=== PATIENT | female | born 1965 | race Hispanic/Latino ===

== ENCOUNTER 2019-02-20 06:56 | Day surgery (SDC) | payer OTHER ==
[2019-02-19 13:03] VITALS: BMI 35.9
--- NOTE | 2019-02-20 07:29 | HP ---
HISTORY OF PRESENT ILLNESS: This is a 53-year-old female comes for a colonoscopy for colon cancer screening. The patient has no specific GI symptoms. There is no family history of colon cancer. ALLERGIES: NONE. SOCIAL HISTORY: The patient does not smoke or drink alcohol. MEDICAL ILLNESSES: 1. Hypothyroidism. 2. Constipation. 3. Allergic rhinitis. 4. Polyarthralgia. 5. Past history of Guillain-Dannebrog syndrome. 6. Tubal ligation. 7. Cholecystectomy. PHYSICAL EXAMINATION: VITAL SIGNS: Pulse is 70 and blood pressure 130/70. HEENT: Conjunctivae clear. CARDIOVASCULAR: First and second heart sounds normal. LUNGS: Clear to auscultation. ABDOMEN: Soft. No organomegaly. No tenderness. No masses. EXTREMITIES: Reveal no edema. ADMITTING DIAGNOSIS: A 53-year-old female comes with a colonoscopy for colon cancer screening. Job ID: [id number]
[2019-02-20] MEDS ORDERED: PROPOFOL 200 MG/20 ML VIAL ONE (11:09)
--- NOTE | 2019-02-20 14:45 | OP ---
DATE OF PROCEDURE: 02/20/2019 PROCEDURE PERFORMED: Colonoscopy with polypectomy. PREOPERATIVE DIAGNOSIS: A 53-year-old female undergoing colonoscopy for colon cancer screening. POSTOPERATIVE DIAGNOSES: 1. Mild sigmoid diverticular disease. 2. Sessile polyp, sigmoid colon, status post snare cautery with good hemostasis. 3. Hemorrhoids and fibroepithelial polyp. DESCRIPTION OF PROCEDURE: The patient was placed on her left lateral position and was given sedation by Anesthesia Department. A rectal exam was done before the scope was advanced into the rectum. No lesion felt on rectal exam. A Pentax video colonoscope was introduced into the rectum and advanced all the way to the cecum. The prep was good. She did have some pockets of retained fecal residue. The appendicular opening, ileocecal wall, cecum, no pathology seen. Withdrawal of scope in the cecum, the ascending colon, hepatic flexure, no pathology seen. The transverse colon, splenic flexure, no lesion seen. In the descending colon, no pathology. The high sigmoid colon showed a broad-based sessile polyp. This was removed with snare cautery with good hemostasis. The patient had mild sigmoid diverticular disease. Retroflexion of the scope in the rectum showed hemorrhoids and what appeared to be a fibroepithelial polyp. This was not removed. Colon decompressed. DISCHARGE PLANNING: This is a 53-year-old female came for colonoscopy for colon cancer screening. She underwent colonoscopy and polypectomy. DISCHARGE RECOMMENDATION: 1. The patient advised to call me if she develops abdominal pain or hematochezia. 2. In the absence of any of above symptoms, she will come back to me in 2 weeks. Job ID: [id number]
== END 2019-02-20 10:45 | disposition home or self-care (01) ==
LOC: SDC 06:56
PROVIDERS: ATTEND Internal Medicine Gastroenterology
PROC: 0DBE8ZZ Excision of Large Intestine, Via Natural or Artificial Opening Endoscopic (ICD-10-PCS; principal; 2019-02-20)
DX: Z12.11 Encounter for screening for malignant neoplasm of colon (principal); D12.5 Benign neoplasm of sigmoid colon; K57.30 Diverticulosis of large intestine without perforation or abscess without bleeding; K64.9 Unspecified hemorrhoids; E03.9 Hypothyroidism, unspecified; K59.00 Constipation, unspecified
CPT/HCPCS: 88305; J2704

== ENCOUNTER 2019-04-03 08:03 | Outpatient (CLI) | payer OTHER ==
--- NOTE | 2019-04-03 10:31 | MMO ---
Bilateral MAMMO Bilat Screen [facility]. CLINICAL HISTORY: Patient is 53 years old and is seen for screening. The patient has no family history of breast cancer. The patient has no personal history of cancer. VIEWS: The views performed were: bilateral craniocaudal with tomosynthesis and bilateral mediolateral oblique with tomosynthesis. FILMS COMPARED: The present examination has been compared to prior imaging studies performed at [facility] on 11/05/2010, 11/24/2011, 10/24/2014 and 10/27/2015. MAMMOGRAM FINDINGS: The breasts are heterogeneously dense, which could obscure a lesion on mammography. There are no suspicious masses, suspicious calcifications, or new areas of architectural distortion. IMPRESSION: THERE IS NO MAMMOGRAPHIC EVIDENCE OF MALIGNANCY. A ROUTINE FOLLOW-UP MAMMOGRAM IN 1 YEAR IS RECOMMENDED. THE RESULTS OF THIS EXAM WERE SENT TO THE PATIENT. ACR BI-RADS Category 1 - Negative MAMMOGRAPHY NOTE: 1. A negative mammogram report should not delay a biopsy if a dominant of clinically suspicious mass is present. 2. Approximately 10% to 15% of breast cancers are not detected by mammography. 3. Adenosis and dense breasts may obscure an underlying neoplasm.
== END 2019-04-03 08:04 | disposition home or self-care (01) ==
LOC: BICMAMMO 08:03
PROVIDERS: ATTEND Physician Assistant
DX: Z12.31 Encounter for screening mammogram for malignant neoplasm of breast (principal)
CPT/HCPCS: 77063; 77067

== ENCOUNTER 2021-06-12 08:17 | Outpatient (CLI) | payer OTHER | END 2021-06-12 08:18 | disposition home or self-care (01) | LOC: BICMAMMO 08:17 | PROVIDERS: ATTEND Physician Assistant | DX: Z12.31 Encounter for screening mammogram for malignant neoplasm of breast (principal) | CPT/HCPCS: 77063; 77067 ==

== ENCOUNTER 2022-01-21 09:11 | Outpatient (CLI) | payer OTHER | END 2022-01-21 09:12 | disposition home or self-care (01) | LOC: MRI 09:11 | PROVIDERS: ATTEND Neurological Surgery | DX: M47.22 Other spondylosis with radiculopathy, cervical region (principal) | CPT/HCPCS: 72050; 72141 ==

== ENCOUNTER 2022-03-23 10:33 | Outpatient (CLI) | payer OTHER | END 2022-03-23 10:34 | disposition home or self-care (01) | LOC: TBSIIMAG 10:33 | PROVIDERS: ATTEND Neurological Surgery | DX: G54.0 Brachial plexus disorders (principal) ==

== ENCOUNTER 2023-06-20 09:12 | Outpatient (CLI) | payer OTHER | END 2023-06-20 09:13 | disposition home or self-care (01) | LOC: BICMAMMO 09:12 | PROVIDERS: ATTEND Physician Assistant | DX: Z12.31 Encounter for screening mammogram for malignant neoplasm of breast (principal) | CPT/HCPCS: 77063; 77067 ==

== ENCOUNTER 2024-07-23 08:46 | Outpatient (CLI) | payer OTHER | END 2024-07-23 08:47 | disposition home or self-care (01) | LOC: BICMAMMO 08:46 | PROVIDERS: ATTEND Nurse Practitioner Family | DX: Z12.31 Encounter for screening mammogram for malignant neoplasm of breast (principal) | CPT/HCPCS: 77063; 77067 ==